=== PATIENT | male | born 1945 | race Caucasian/White ===

== ENCOUNTER 2017-02-21 12:03 | Emergency (ER) | payer MEDICAID ==
[2017-02-21 12:07] VITALS: TEMP 97.9
[2017-02-21] MEDS ORDERED: Iohexol 240 (50 ml) PO STA (13:16)
[2017-02-21] MEDS ORDERED: Sodium Chloride 0.9% 1,000 ML IV ONE (13:16)
[2017-02-21] MEDS ORDERED: Iohexol 240 (50 ml) ONE (13:29)
[2017-02-21] MEDS ORDERED: Sodium Chloride 0.9% 1,000 ML ONE (13:29)
--- NOTE | 2017-02-21 13:39 | C.PDOC ---
History Of Present Illness Patient is a 71 year old male who presents to the ER with a complaint of diffuse abdominal pain for the past 3 months that worsened last night. Patient reports not being able to eat a lot because it makes him nausea and makes him vomit. Patient notes he vomited yesterday and his last bowel movement was 2 days ago. Denies fever, chills, and urinary symptoms. Time Seen by Provider: 02/21/17 12:09 Chief Complaint (Nursing): Abdominal Pain History/Exam Limitations: no limitations Onset/Duration Of Symptoms: Days (3 months, worsened last night) Current Symptoms Are (Timing): Still Present Location Of Pain/Discomfort: Diffuse Associated Symptoms: denies: Fever, Chills, Urinary Symptoms Last Bowel Movement: Days Ago (2) Past Medical History Reviewed: Historical Data, Nursing Documentation, Vital Signs Vital Signs: Last Vital Signs Temp 97.9 F 02/21/17 12:06 Pulse 58 L 02/21/17 16:51 Resp 18 02/21/17 16:51 BP 110/72 02/21/17 16:51 Pulse Ox 100 02/21/17 16:51 Other Surgeries: ex/lap Family History: States: Unknown Family Hx - Social History Hx Alcohol Use: No Hx Substance Use: No Review Of Systems Constitutional: Negative for: Fever, Chills Cardiovascular: Negative for: Chest Pain Respiratory: Negative for: Shortness of Breath Gastrointestinal: Positive for: Abdominal Pain. Negative for: Nausea, Vomiting Physical Exam - Physical Exam Appears: Non-toxic, Other (Uncomfortable) Skin: Normal Color, Warm, Dry Head: Atraumatic, Normacephalic Oral Mucosa: Moist Chest: Symmetrical Cardiovascular: Rhythm Regular Respiratory: Normal Breath Sounds, No Rales, No Rhonchi, No Wheezing Gastrointestinal/Abdominal: Soft, Tenderness (diffuse, most in epigastric region. ), Other (ex/lap surgery scar, no pulsatile mass) Neurological/Psych: Oriented x3, Normal Speech, Normal Cognition ED Course And Treatment - Laboratory Results Result Diagrams: 02/21/17 13:38 02/21/17 13:38 O2 Sat by Pulse Oximetry: 98 (Room air) Pulse Ox Interpretation: Normal Progress Note: Blood work, urinalysis, and abd/pelvis w/ PO & IV contrast. Morphine, omnipaque PO, pepcid IVP, IV fluids, and zofran IVP. Medical Decision Making Medical Decision Making: pt resting comfortably. pt tolerated po fluids. ct scan reveals constipation, normal labs. pt to be discharged with miralax and gi and gu follow up. Disposition Counseled Patient/Family Regarding: Studies Performed, Diagnosis, Need For Followup, Rx Given - Disposition Referrals: Sumit Vallecillo MD [Staff Provider] - Franko Hammer MD [Staff Provider] - Disposition: HOME/ ROUTINE Disposition Time: 16:57 Condition: GOOD Additional Instructions: Drink more water. Increase fiber in diet. Follow up in medical clinic as scheduled, as well as with Dr Hammer (urology doctor) and Dr Vallecillo ( stomach doctor). Take Miralax as prescribed. Return to ER for any worsening symptoms. Prescriptions: Polyethylene Glycol 3350 [Miralax] 17 gm PO DAILY #119 ml Forms: Gen Discharge Inst Estonian - Clinical Impression Clinical Impression: Constipation, Abdominal pain - Scribe Statement The provider has reviewed the documentation as recorded by the Scribe Saud Figueroa All medical record entries made by the Brendaibraisa were at my direction and personally dictated by me. I have reviewed the chart and agree that the record accurately reflects my personal performance of the history, physical exam, medical decision making, and the department course for this patient. I have also personally directed, reviewed, and agree with the discharge instructions and disposition.
[2017-02-21 13:42] LABS: BASO % 0.6 % (0.0-2.0); EOS # 0.1 K/uL (0.0-0.7); EOS % 1.1 % (0.0-4.0); HEMATOCRIT 36.6 % (35.0-51.0); LYMPH # 1.8 K/uL (1.0-4.3); LYMPH % 36.9 % (20.0-40.0); MEAN CELL VOLUME 92.7 fL (80.0-94.0); MEAN CORPUSCULAR HEMOGLOBIN 30.5 pg (27.0-31.0); MEAN CORPUSCULAR HGB CONC 32.9 g/dL (33.0-37.0); MEAN PLATELET VOLUME 8.2 fL (7.2-11.7); MONO # 0.3 K/uL (0.0-0.8); MONO % 5.5 % (0.0-10.0); RED CELL DISTRIBUTION WIDTH 13.5 % (11.5-14.5); WHITE BLOOD COUNT 4.9 K/uL (4.8-10.8)
[2017-02-21 13:49] LABS: CHLORIDE 102 mmol/L (98-107); SODIUM 140 mmol/L (132-148)
[2017-02-21 13:51] LABS: BILIRUBIN,TOTAL 0.6 mg/dL (0.2-1.3); CARBON DIOXIDE 28 mmol/L (22-30); GFR AFRICAN-AMERICAN > 60
[2017-02-21 13:52] LABS: ALB/GLOB RATIO 1.3 (1.0-2.1); ALT/SGPT 23 U/L (21-72); AST/SGOT 21 U/L (17-59); BLOOD UREA NITROGEN 18 mg/dL (9-20); CALCIUM 8.2 mg/dl (8.6-10.4); GLUCOSE,RANDOM 82 mg/dL (75-110); TOTAL PROTEIN 7.1 g/dL (6.3-8.3)
[2017-02-21 14:00] LABS: RBC URINE 5 /hpf (0-3); URINE BACTERIA RARE (<OCC); URINE BILIRUBIN NEGATIVE (NEGATIVE); URINE BLOOD NEGATIVE (NEGATIVE); URINE COLOR Yellow (YELLOW); URINE GLUCOSE (UA) NORMAL (Normal); URINE KETONE NEGATIVE (NEGATIVE); URINE LEUKOCYTE ESTERASE NEG Leu/uL (Negative); URINE PROTEIN NEGATIVE (NEGATIVE); URINE UROBILINOGEN NORMAL mg/dL (0.2-1.0); WBC URINE 1 /hpf (0-5)
[2017-02-21 14:10] LABS: ALKALINE PHOSPHATASE 54 U/L (38-126)
[2017-02-21] MEDS ORDERED: Iodixanol 320 MG/ML 100 ML BOTTLE IV ONE (15:18)
[2017-02-21] MEDS ORDERED: Albuterol-Ipratrop 3 mg / 0.5 (3 ml) UD ONE (16:05)
--- NOTE | 2017-02-21 16:32 | CT ---
PROCEDURE: CT Abdomen and Pelvis with contrast HISTORY: abd pain COMPARISON: None. TECHNIQUE: Contrast dose: 100 mL Visipaque 320 Radiation dose: Total exam DLP = 472.75 0.00 mGy-cm. This CT exam was performed using one or more of the following dose reduction techniques: Automated exposure control, adjustment of the mA and/or kV according to patient size, and/or use of iterative reconstruction technique. FINDINGS: LOWER THORAX: Mild dependent atelectasis both lower lobes. LIVER: Unremarkable. No gross lesion or ductal dilatation. GALLBLADDER AND BILE DUCTS: Unremarkable. PANCREAS: Unremarkable. No gross lesion or ductal dilatation. SPLEEN: Unremarkable. ADRENALS: Unremarkable. No mass. KIDNEYS AND URETERS: 1.9 cm left lower pole renal cyst. No other renal mass. Two left upper pole renal calculi, 7 mm and 2 mm respectively. No hydronephrosis. VASCULATURE: Unremarkable. No aortic aneurysm. BOWEL: Moderate retained feces consistent with constipation. No bowel obstruction. No abnormal bowel loops. APPENDIX: Not identified. No secondary findings to suggest acute appendicitis. PERITONEUM: No ascites. Small left inguinal hernia containing only mesenteric fat. Two small infraumbilical ventral hernias containing only mesenteric fat. LYMPH NODES: Unremarkable. No enlarged lymph nodes. BLADDER: Unremarkable. REPRODUCTIVE: Normal prostate BONES: No acute fracture. OTHER FINDINGS: None. IMPRESSION: Moderate retained stool. 2 nonobstructing left upper pole renal calculi. No other acute abnormalities. Minor findings as above.
[2017-02-21 16:52] VITALS: BP 110/72; PULSE 58; RESP 18
[2017-02-21 16:56] VITALS: O2SAT 98
--- NOTE | 2017-03-10 14:43 | CARD ---
APPROVED REPORT EKG Measurement Heart [id number] <Conclusion> Normal sinus rhythm Normal ECG
== END 2017-02-21 17:43 | disposition home or self-care (01) ==
LOC: C.ER 12:03
DX: K59.00 Constipation, unspecified (principal)
CPT/HCPCS: 74177; 80053; 81001; 83690; 85025; 96361; 96374; 96375; 99285; J2270; J2405; J7040; Q9966; Q9967